=== PATIENT | female | born 1985 | race African-American/Black ===

== ENCOUNTER 2016-02-19 05:57 | Inpatient (IN) | payer OTHER ==
[2016-02-19] MEDS ORDERED: RINGERS SOLUTION,LACTATED 1,000 ML IV ONE (06:15)
[2016-02-19] MEDS ORDERED: LIDOCAINE HCL 50 ML VIAL PERI PRN (06:15)
[2016-02-19] MEDS ORDERED: OXYTOCIN/DEXTROSE 5%-WATER 500 UNITS/8,333.33 ML BAG IV ONE (06:15)
[2016-02-19] MEDS ORDERED: OXYTOCIN/DEXTROSE 5%-WATER 30 UNITS/500 ML BAG IV ONE ×2 (06:30→13:59)
[2016-02-19 06:47] LABS: Hematocrit 33.8 % (37.0-47.0); Mean Cell Volume 90.6 fl (78-100); Mean Corpuscular Hemoglobin 29.5 pg (27-31); Mean Corpuscular Hgb Conc 32.5 g/dl (32-36); Mean Platelet Volume 9.8 fl (6.0-9.5); Neutrophil # 2.9 K/mm3 (1.3-6.0); Neutrophil % 56.2 % (42-75.0); Platelet Count 229 K/mm3 (150-450); Red Blood Count 3.73 M/mm3 (4.2-5.4); White Blood Count 5.1 K/mm3 (4.0-10.5)
[2016-02-19] MEDS ORDERED: BUPIVACAINE HCL/0.9 % NACL/PF 250 ML EP PRN (06:49)
[2016-02-19] MEDS ORDERED: NALOXONE HCL 1 MG/1 ML SYRG IV PRN (06:49)
[2016-02-19] MEDS ORDERED: BUPIVACAINE HCL/PF 30 ML VIAL EP ONE (06:49)
[2016-02-19] MEDS ORDERED: ONDANSETRON HCL/PF 2 MG/ML VIAL IV PRN (06:49)
[2016-02-19] MEDS ORDERED: PENICILLIN G POTASSIUM 5 MILLIONUNT in DEXTROSE 5 % IN WATER 100 ML IV ONE ×2 (07:00)
--- NOTE | 2016-02-19 07:32 | OR ---
Anesthesia Procedure Note - Anesthesia Procedure Note Date of Service: 02/19/16 Narrative: Vital Signs - Last Taken Temp Pulse 83 02/19/16 07:10 Resp 18 02/19/16 07:10 BP 128/83 02/19/16 07:10 Pulse Ox 100 02/19/16 07:10 02/19/16 07:31 ANESTHESIA PROCEDURE NOTE Date of Procedure: 02/19/2016. Time of procedure: 709. Performed by: Rober Bentley CRNA Apartment Assistant Manager: None. Preprocedure diagnosis: Active labor. Post procedure diagnosis: Same. Procedure: Insertion of labor epidural. Indications: The patient is a 30 -year-old -[place] female in active labor requesting labor epidural for pain management. Findings: See below. Details of the procedure: The patient was placed in a sitting position. DuraPrep as well as Betadine swabs 3 was applied to the patient's back. Patient was then draped in a sterile fashion. Lidocaine 1% was infiltrated to the skin and subcutaneous tissues at the level of the L3 4 interspace. The epidural space was identified using a 18-gauge Tuohy needle with loss-of- resistance technique. Epidural catheter was inserted to a depth of 11 centimeters at skin. Negative test dose was elicited using 3 mL of 1.5% preservative-free lidocaine plus epinephrine 1 200,000. The epidural catheter was then taped and secured in place. A loading dose of 8 mL of 0.25% preservative-free bupivacaine was administered to the epidural catheter after negative aspiration for blood and CSF. EBL: Minimal. Fluids: N/A. Specimen: N/A. Post procedure condition: The patient tolerated the procedure well. No complications were noted. Thank you for this consultation. Rober Bentley CRNA
[2016-02-19] MEDS: RINGERS SOLUTION,LACTATED 1,000 ML IV PRN ×2 (07:36→12:08)
[2016-02-19] MEDS: PENICILLIN G POTASSIUM 2.5 MILLIONUNT in DEXTROSE 5 % IN WATER 100 ML IV SCH ×6 (10:09→19:10)
[2016-02-19] MEDS ORDERED: SENNOSIDES 8.6 MG TABLET PO PRN (13:59)
[2016-02-19] MEDS ORDERED: diphenhydrAMINE HCL 25 MG CAPSULE PO PRN (13:59)
[2016-02-19] MEDS ORDERED: BISACODYL 10 MG SUPP.RECT RC PRN (13:59)
[2016-02-19] MEDS ORDERED: HYDROCORTISONE 30 APPL TUBE TP PRN (13:59)
[2016-02-19] MEDS ORDERED: GLYCERIN/WITCH HAZEL LEAF 40 APPL BOX TP PRN (13:59)
[2016-02-19] MEDS ORDERED: ACETAMINOPHEN 325 MG TABLET PO PRN (13:59)
[2016-02-19] MEDS ORDERED: HYDROcodone/ACETAMINOPHEN 1 EACH TABLET PO PRN (13:59)
--- NOTE | 2016-02-19 14:27 | OR ---
Operative Report - Dictated Report Narrative: Spontaneous Vaginal Delivery Note: 30 yo, AAF, at 36 3/7 weeks presented with SROM at 5: 50 AM today, leaking large amount of fluid, nitrazine was positive. Her cervix dilated to 2 cm at admission. GBS unknown. Penicillin started for GBS prophylaxis and GBS obtained rectally due to vaginal exam. Received epidural after admission. Pitocin started after 3 hours of expectant management without cervical change. Progressed to complete without complications. The perineum was cleaned with betadine. Pushed with contractions with descent. Head delivered in OA over the perineum, no nuchal cord. The anterior shoulder delivered, followed by the posterior shoulder and the rest of the baby without difficulty. Baby cried immediately after . Cord was clamped, and cut by father of baby. Baby placed on maternal abdomen for care by nursing. Cord blood was also obtained. Placenta delivered with gentle traction, intact with a questionable accessory lobe and with 3 vessel cord. Pitocin drip started after placenta delivered. Exam of the perineum, vaginal and cervix revealed small superficial labial abrasions. No repair needed. Fundus was massaged and firm. Bleeding was minimal. Mother and baby tolerated the delivery well. EBL 150 ml. Infant: female, 2406 grams, 5 lbs and 4.8 oz. 9/9. Time of delivery: 13: 20. Shaina Gee MD History for Definition: * The number of deliveries resulting in a live the patient experienced prior to current hospitalization * The previous delivery of live twins or any live multiple gestation is considered one live event. *If primagravida or nulliparous is documented select zero for the number of previous live births. Live Events: 1
[2016-02-19] MEDS: IBUPROFEN 800 MG TABLET PO PRN (15:52)
[2016-02-19] MEDS: HYDROcodone/ACETAMINOPHEN 1 EACH TABLET PO PRN ×2 (17:33→21:29)
[2016-02-19] MEDS: DOCUSATE SODIUM 100 MG CAPSULE PO SCH (20:26)
[2016-02-20] MEDS: HYDROcodone/ACETAMINOPHEN 1 EACH TABLET PO PRN ×4 (04:50→19:56)
[2016-02-20] MEDS: IBUPROFEN 800 MG TABLET PO PRN ×2 (04:50→15:19)
[2016-02-20] MEDS: DOCUSATE SODIUM 100 MG CAPSULE PO SCH ×2 (09:04→20:22)
--- NOTE | 2016-02-20 11:00 | PN ---
Subjective - Date and Time Seen Date: 02/20/16 Subjective Narrative: day 1, s/p doing well. , pumping now. normal lochia. pain controlled. Objective - Vitals Vitals: Last Vital Signs Temp 36.9 C 02/20/16 07:25 Pulse 73 02/20/16 07:25 Resp 20 02/20/16 07:25 BP 107/58 02/20/16 07:25 Pulse Ox 99 02/20/16 07:25 - Exam Constitutional: Present: Alert, Oriented x3, Cooperative Respiratory: Present: no respiratory distress Cardiovascular/Chest: Present: normal peripheral pulses Abdomen: Present: soft, nontender, nondistended, other - fundus firm Extremity: Present: normal range of motion, no pedal edema, no calf tenderness Skin Exam: Present: normal color, warm/dry, no cyanosis Eye contact: Present: cooperative, good eye contact, normal speech Cauti Physician Documentation - Urinary Catheter Management Urethral ([place]) Date of Insertion: 02/19/16 Time of Insertion: 08:30 Date of Removal: 02/19/16 Time of Removal: 13:00 Assessment/Plan Plan Narrative: A: day 1, s/p , stable and well. Plan: routine care. ambulation encouraged. Shaina Gee MD
[2016-02-21] MEDS: HYDROcodone/ACETAMINOPHEN 1 EACH TABLET PO PRN ×3 (04:46→15:06)
[2016-02-21] MEDS: IBUPROFEN 800 MG TABLET PO PRN ×2 (07:47→15:06)
[2016-02-21] MEDS: DOCUSATE SODIUM 100 MG CAPSULE PO SCH ×3 (07:47→21:23)
--- NOTE | 2016-02-21 09:41 | PN ---
Subjective - Date and Time Seen Date: 02/21/16 Subjective Narrative: PPD#2, s/p doing well. ambulating. . normal lochia. Objective - Vitals Vitals: Last Vital Signs Temp 36.6 C 02/21/16 07:40 Pulse 72 02/21/16 07:40 Resp 20 02/21/16 07:40 BP 128/69 02/21/16 07:40 Pulse Ox 97 02/21/16 07:40 - Exam Constitutional: Present: Alert, Oriented x3, Cooperative Respiratory: Present: no respiratory distress Cardiovascular/Chest: Present: normal peripheral pulses Abdomen: Present: soft, nontender, nondistended, other - fundus firm and below umbilicus Extremity: Present: normal range of motion, no pedal edema, no calf tenderness Skin Exam: Present: normal color, warm/dry, no cyanosis Eye contact: Present: cooperative, good eye contact, normal speech Cauti Physician Documentation - Urinary Catheter Management Urethral ([place]) Date of Insertion: 02/19/16 Time of Insertion: 08:30 Date of Removal: 02/19/16 Time of Removal: 13:00 Assessment/Plan Plan Narrative: A: PPD#2, s/p , stable and well. Plan: will discharge home today. Shaina Gee MD
[2016-02-21 20:49] VITALS: BP 135/76
[2016-02-22] MEDS: HYDROcodone/ACETAMINOPHEN 1 EACH TABLET PO PRN (00:01)
[2016-02-22] MEDS: IBUPROFEN 800 MG TABLET PO PRN (00:01)
== END 2016-02-21 23:59 | disposition home or self-care (01) | DRG 775 ==
LOC: OBCLINIC 05:57 → OB 06:12
PROVIDERS: ADMIT Obstetrics & Gynecology; ATTEND Obstetrics & Gynecology
PROC: 10E0XZZ Delivery of Products of Conception, External Approach (ICD-10-PCS; principal; 2016-02-19)
PROC: 3E033VJ Introduction of Other Hormone into Peripheral Vein, Percutaneous Approach (ICD-10-PCS; 2016-02-19)
PROC: 3E0S3CZ (ICD-10-PCS; 2016-02-19)
DX: O42.913 Preterm premature rupture of membranes, unspecified as to length of time between rupture and onset of labor, third trimester (principal); O26.873 Cervical shortening, third trimester; Z3A.36 36 weeks gestation of pregnancy; Z37.0 Single live birth